=== PATIENT | male | born 2000 | race Caucasian/White ===

== ENCOUNTER 2024-01-09 11:39 | Emergency (ER) | payer BC, SELFPAY ==
--- NOTE | ~2024-01-09 | XR_ITS ---
EXAMINATION: XR clavicle LT DATE: 01/09/2024 12:59 INDICATION: Left clavicle injury. TECHNIQUE: 2 views of left clavicle were obtained. COMPARISON: None. FINDINGS: Bone alignment is normal. No fracture. There is mild widening of acromioclavicular joint an d coracoclavicular interval. IMPRESSION: 1. Mild widening of the acromiocoracoid joint and coracoclavicular interval suspicious for type III a cromioclavicular separation. Consider radiographs of the bilateral acromioclavicular joints without a nd with weights. Reviewed, dictated and finalized at location A. OM[employer] RELATIONS REPRESENTATIVE IMPRESSION: 1. Mild widening of the acromiocoracoid joint and coracoclavicular interval lalo picious for type III acromioclavicular separation. Consider radiographs of the bilateral acromioclavicular joints without and with weights.
--- NOTE | ~2024-01-09 | XR_ITS ---
EXAMINATION: XR AC joint BI DATE: 01/09/2024 13:26 INDICATION: Left clavicle pain. TECHNIQUE: Anteroposterior views of the bilateral acromioclavicular joints without and with weights w ere obtained. COMPARISON: Left clavicle radiographs 01/09/2014 FINDINGS: There is mild widening of left acromioclavicular joint and left coracoclavicular interval. No fracture. No arthritis. IMPRESSION: 1. Type III left acromioclavicular separation. Reviewed, dictated and finalized at location A. [employer]
[2024-01-09 12:02] VITALS: BP 124/61; PULSE 63; RESP 16; TEMP 36.6; O2SAT 99
--- NOTE | 2024-01-09 12:30 | ED.GENADULT ---
HPI - General Adult General Chief complaint: Unspecified Stated complaint: lt shoulder/chest hurts Time Seen by Provider: 01/09/24 12:30 Source: patient Mode of arrival: ambulatory Limitations: no limitations History of Present Illness HPI narrative: 23-year-old male presents with complaint of pain to left shoulder clavicle area for the past week. Patient states 1 week ago was lifting weights and felt popping to left shoulder area. Patient has normal range of motion but pain with movement. Distal neurovascularly intact. All systems reviewed and negative except as noted. Related Data Home Medications Medication Instructions Recorded Confirmed No Home Medications 01/09/24 01/09/24 Allergies Allergy/AdvReac Type Severity Reaction Status Date / Time No Known Allergies Allergy Verified 01/09/24 12:13 Review of Systems Review of Systems: CONSTITUTIONAL: Denies fever, chills, or sweats. EYES: Denies visual changes, redness, or discharge. ENT: Denies rhinorrhea, congestion, sore throat, or otalgia. CARDIOVASCULAR: Denies chest pain, palpitations, or edema. RESPIRATORY: Denies cough or dyspnea. GASTROINTESTINAL: Denies abdominal pain, nausea, vomiting, or diarrhea. GENITOURINARY: Denies dysuria or hematuria. SKIN: Denies rash or itching. MUSCULOSKELETAL: Denies back pain or myalgia. Pain to left shoulder and clavicle. NEUROLOGIC: Denies headache, numbness, or weakness. PSYCHIATRIC: Denies anxiety or depression. All other systems reviewed are negative, except as documented in HPI. PMFSH Comments At time of signature, agree with nursing past medical, surgical, social and family history. There is no relevant family history pertinent to the presenting complaint. Exam Narrative: GENERAL: This is a well-nourished, well-developed patient, in no apparent distress. HEAD: normocephalic, atraumatic. EYES: PERRL. Sclera clear/white. Vision is grossly intact. EARS: External ears normal NOSE: External nose normal NECK: Neck supple, non-tender without lymphadenopathy, masses or thyromegaly. CARDIOVASCULAR: Regular rate and rhythm without murmurs, gallops, or rubs. RESPIRATORY: Clear to auscultation. Breath sounds equal bilaterally. No wheezes, rales, or rhonchi. SKIN: warm, Dry, intact with no suspicious lesions or rash, good texture and turgor. NEURO: awake, alert, and oriented to person, place and time. There were no obvious focal neurologic abnormalities. EXTREMITIES: Tenderness to left AC/ clavicle aspect with mild swelling. Range of motion decreased due to pain. Course Course Level of Care: Express Care Visit Vital Signs Vital signs: Vital Signs Temperature 36.6 C 01/09/24 12:02 Pulse Rate 63 01/09/24 12:02 Respiratory Rate 16 01/09/24 12:02 Blood Pressure 124/61 01/09/24 12:02 Pulse Oximetry 99 01/09/24 12:02 Oxygen Delivery Room Air 01/09/24 12:02 Temperature 36.6 C 01/09/24 12:02 Pulse Rate 63 01/09/24 12:02 Respiratory Rate 16 01/09/24 12:02 Blood Pressure 124/61 01/09/24 12:02 Pulse Oximetry 99 01/09/24 12:02 Oxygen Delivery Room Air 01/09/24 12:02 Reviewed Medical Decision Making MDM Narrative Medical decision making narrative: reviewed x-ray results with patient. Patient placed in shoulder immobilizer by SHIRA Blevins. Refer to orthopedics for follow-up. Patient is aware of diagnosis, understands and agrees to treatment plan. Anticipatory guidance given. Patient agrees to follow-up as directed and is aware of reasons to seek care at the emergency department. Portions of this record may have been created with voice recognition software Vital Signs Vital Signs: Vital Signs Temperature 36.6 C 01/09/24 12:02 Pulse Rate 63 01/09/24 12:02 Respiratory Rate 16 01/09/24 12:02 Blood Pressure 124/61 01/09/24 12:02 Pulse Oximetry 99 01/09/24 12:02 Oxygen Delivery Room Air 01/09/24 12:02 Temperature 36.6 C 0
== END 2024-01-09 14:02 | disposition home or self-care (01) ==
PROVIDERS: Emergency Provider Nurse Practitioner Family
DX: S43.102A Unspecified dislocation of left acromioclavicular joint, initial encounter (principal); X50.3XXA Overexertion from repetitive movements, initial encounter; Y93.B3 Activity, free weights
CPT/HCPCS: 73000; 73050; 99213; G0463

== ENCOUNTER 2024-06-16 14:45 | Outpatient (CLI) | payer BC, SELFPAY ==
--- NOTE | ~2024-06-16 | MR_ITS ---
EXAMINATION: MR chest wo/w con DATE: 06/16/2024 15:45 INDICATION: Localized swelling, mass and lump at the left sternoclavicular joint. TECHNIQUE: Magnetic resonance imaging (MRI) of the about the left anterior upper chest centered at th e left sternoclavicular joint was performed without and with 18 mL Multihance intravenous contrast. A marker was placed over the mass. Sequences included axial, sagittal and coronal T1-weighted FSE, sa gittal T2-weighted FS FSE, axial and coronal fluid sensitive FSE STIR, and axial T1-weighted FS FSE a nd post contrast axial, sagittal and coronal T1-weighted FS FSE were also obtained. COMPARISON: None. FINDINGS: The marker indicating the region of concern overlies the left sternoclavicular joint. The bilateral s ternoclavicular joints appear symmetric with no evident subluxation, erosions or joint effusion. Bone marrow signal is normal with no reactive edema, fracture or pathologic marrow replacing process. Sag ittally oriented thin linear fluid signal on the coronal images at the junction of the manubrium and the first rib costal cartilage consistent with fracture with a small portion of the inferior portion of the costal cartilage remaining attached to the mandible. This can be best appreciated on series 8, images 10 and 11. Overlying the pectoralis musculature on the remaining visualized musculature of th e chest and right shoulder girdle are normal. IMPRESSION: 1. Costochondral fracture and with sternochondral separation of the junction of the left first and th e manubrium. Reviewed, dictated and finalized at location A. IMPRESSION: 1. Costochondral fracture and with sternochondral separation of the junction of the left first and the manubrium.
== END 2024-06-16 14:46 ==
LOC: MICIMG 14:46
PROVIDERS: PCP Orthopaedic Surgery; Visit Provider Orthopaedic Surgery
DX: R22.2 Localized swelling, mass and lump, trunk (principal); S22.21XA Fracture of manubrium, initial encounter for closed fracture; S22.32XA Fracture of one rib, left side, initial encounter for closed fracture; X58.XXXA Exposure to other specified factors, initial encounter
CPT/HCPCS: 71552; A9577